=== PATIENT | male | born 1945 ===

== ENCOUNTER 2017-02-26 18:42 | Emergency (ER) | payer MEDICARE ==
[2017-02-26 18:52] VITALS: BP 134/68; PULSE 64; RESP 18; TEMP 98.4; O2SAT 98
--- NOTE | 2017-02-26 19:39 | ED PDOC ---
Lower Extremity Pain/Injury Time Seen by Provider: 02/26/17 19:01 Chief Complaint (Nursing): Lower Extremity Problem/Injury Chief Complaint (Provider): Left Toe Pain History Per: Patient History/Exam Limitations: no limitations Onset/Duration Of Symptoms: Days Current Symptoms Are (Timing): Still Present Additional Complaint(s): Kalyn Rocha, a 71 year old male, with a past medical history of diabetes and coronary artery disease presents to the ED with intermittent left toe pain. Patient states he has difficulty bending his left great toe. He reports that this diabetes is currently under control and denies any other joint pain. He reports that he has yet to be seen by podiatry. Denies fevers, chills. PMD: Reva Fowler Past Medical History Reviewed: Historical Data, Nursing Documentation, Vital Signs Vital Signs: Last Vital Signs Temp 98.4 F 02/26/17 18:47 Pulse 64 02/26/17 18:47 Resp 18 02/26/17 18:47 BP 134/68 02/26/17 18:47 Pulse Ox 98 02/26/17 18:47 - Medical History PMH: CAD, Diabetes, HTN Denies: HIV - Surgical History Surgical History: Coronary Stent - Family History Family History: States: Diabetes - Home Medications Home Medications: Ambulatory Orders Medication Instructions Recorded Bisoprolol 2.5 mg PO DAILY 07/31/14 Enalapril Maleate 10 mg PO DAILY 07/31/14 Famotidine [Pepcid] 20 mg PO BID 07/31/14 Glipizide 5 mg PO QPM 07/31/14 Metformin Hydrochloride [Metformin] 1,000 mg PO BID 07/31/14 Sitagliptin Phosphate [Januvia] 100 mg PO DAILY 07/31/14 Aspirin 325 mg PO DAILY #30 tab 08/01/14 Atorvastatin [Lipitor] 80 mg PO HS #30 tab 08/01/14 Clopidogrel [Plavix] 75 mg PO HS #0 tab 08/01/14 Ibuprofen [Motrin Ib] 400 mg PO Q6 #30 tablet 02/26/17 Methylprednisolone [Medrol Dose 4 mg PO DAILY #21 mg 02/26/17 Pack (21 tabs)] - Allergies Allergies/Adverse Reactions: Allergies Allergy/AdvReac Type Severity Reaction Status Date / Time No Known Allergies Allergy Verified 07/31/14 17:35 Review of Systems ROS Statement: Except As Marked, All Systems Reviewed And Found Negative Constitutional: Negative for: Fever, Chills Musculoskeletal: Negative for: Foot Pain (Left toe pain) Physical Exam - Reviewed Nursing Documentation Reviewed: Yes Vital Signs Reviewed: Yes - Physical Exam Appears: Positive for: Non-toxic, No Acute Distress Head Exam: Positive for: ATRAUMATIC, NORMAL INSPECTION, NORMOCEPHALIC Skin: Positive for: Normal Color, Warm, Dry. Negative for: Rash Eye Exam: Positive for: Normal appearance, EOMI, PERRL. Negative for: Nystagmus Neck: Positive for: Normal, Painless ROM, Supple Cardiovascular/Chest: Positive for: Regular Rate, Rhythm, Chest Non Tender. Negative for: Tachycardia Respiratory: Positive for: Normal Breath Sounds. Negative for: Rales, Rhonchi, Wheezing, Respiratory Distress Extremity: Positive for: Swelling (mild swelling of the metatarsal joint ), Other (distal pulses intact; no erythema to left toe). Negative for: Normal ROM (limited ROM secondary to pain of joint), Tenderness, Calf Tenderness, Deformity Neurologic/Psych: Positive for: Alert, Oriented - ECG O2 Sat by Pulse Oximetry: 98 (RA) Pulse Ox Interpretation: Normal Medical Decision Making Medical Decision Makin Initial Impression: Gout vs Arthritis Initial Plan: * Toradol 30mg IM * RAD Left Foot * Reevaluation 830PM Pt. is sleeping, feeling better, told to f/u w/ podiatry. Will d/c home. Return precautions given. Scribe Attestation Documented by Ade Hooker acting as a scribe for Roland Marsh MD. Provider Attestation: All medical record entries made by the Scribe were at my direction and personally dictated by me. I have reviewed the chart and agree that the record accurately reflects my personal performance of the history, physical exam, medical decision making, and the department course for this patient. I have also personally directed, reviewed, and agree with the discharge instructions and disposition. Disposition - Clinical Impression Clinical Impression: Gout, Foot pain - Disposition Referrals: Podiatry Clinic [Outside] Disposition: Routine/Home Disposition Time: 20:30 Condition: IMPROVED Prescriptions: Ibuprofen [Motrin Ib] 400 mg PO Q6 #30 tablet Methylprednisolone [Medrol Dose Pack (21 tabs)] 4 mg PO DAILY #21 mg Instructions: Gout (ED), Swollen Joint (ED) Forms: [employer] (Mosotho)
--- NOTE | 2017-03-02 10:52 | RAD ---
PROCEDURE: Left Foot Radiographs. HISTORY: Left foot pain and swelling. No antecedent history of trauma provided. COMPARISON: None. FINDINGS: BONES: Normal. No fracture. JOINTS: Normal. SOFT TISSUES: Normal. OTHER FINDINGS: None. IMPRESSION: No significant or acute findings to account for/ related to the clinical presentation. Please note: No preliminary report/ innterpretation of this examination provided by emergency department personnel.
== END 2017-02-26 20:50 | disposition home or self-care (01) ==
LOC: H.ER 18:42
DX: M10.9 Gout, unspecified (principal); M79.672 Pain in left foot; E11.9 Type 2 diabetes mellitus without complications; I25.10 Atherosclerotic heart disease of native coronary artery without angina pectoris; I10 Essential (primary) hypertension
CPT/HCPCS: 73660; 96372; 99283; J1885

== ENCOUNTER 2018-05-21 10:17 | Emergency (ER) | payer MEDICARE ==
[2018-05-21 10:38] VITALS: TEMP 98.5
[2018-05-21 10:39] VITALS: BMI 27.4
[2018-05-21] MEDS ORDERED: Tdap Vaccine 0.5 ml Vial (10-64 yrs) IM ONE (10:51)
[2018-05-21 11:18] LABS: BASO % 0.2 % (0.0-2.0); EOS # 0.1 K/uL (0.0-0.7); EOS % 0.8 % (0.0-4.0); HEMOGLOBIN 12.3 g/dL (12.0-18.0); LYMPH # 1.1 K/uL (1.0-4.3); LYMPH % 13.8 % (20.0-40.0); MEAN CELL VOLUME 89.8 fl (80.0-94.0); MEAN CORPUSCULAR HEMOGLOBIN 29.5 pg (27.0-31.0); MEAN CORPUSCULAR HGB CONC 32.9 g/dL (33.0-37.0); MONO # 0.5 K/uL (0.0-0.8); MONO % 6.4 % (0.0-10.0); NEUT # 6.4 K/uL (1.8-7.0); NEUT % 78.8 % (50.0-75.0); NRBC % 0.1 % (0.0-0.0); RBC 4.18 Mil/uL (4.40-5.90); RED CELL DISTRIBUTION WIDTH 13.1 % (11.5-14.5); WHITE BLOOD COUNT 8.1 K/uL (4.8-10.8)
[2018-05-21 11:29] LABS: ALB/GLOB RATIO 1.2 (1.0-2.1); ALBUMIN 4.1 g/dL (3.5-5.0); ALT/SGPT 26 U/L (21-72); AST/SGOT 24 U/L (17-59); BLOOD UREA NITROGEN 18 mg/dl (9-20); CALCIUM 9.8 mg/dL (8.4-10.2); GFR NON-AFRICAN AMERICAN > 60
[2018-05-21] MEDS ORDERED: Lidocaine 1% Inj (20ml) IJ ONE (11:32)
[2018-05-21 11:34] LABS: PROTHROMBIN TIME 11.4 Seconds (9.8-13.1)
[2018-05-21 11:37] LABS: PARTIAL THROMBOPLASTIN TIME 26.8 Seconds (25.6-37.1)
--- NOTE | 2018-05-21 11:54 | CT ---
D dated 07/31/2014. Ate of service: 05/21/2018 PROCEDURE: CT HEAD WITHOUT CONTRAST. HISTORY: r/o ICH COMPARISON: comparison made with prior study 07/31/2014 TECHNIQUE: Axial computed tomography images were obtained through the head/brain without intravenous contrast. Radiation dose: Total exam DLP = 832.83 mGy-cm. This CT exam was performed using one or more of the following dose reduction techniques: Automated exposure control, adjustment of the mA and/or kV according to patient size, and/or use of iterative reconstruction technique. FINDINGS: HEMORRHAGE: No intracranial hemorrhage. BRAIN: Chronic periventricular white matter ischemic changes are suspected. Moderate generalized volume loss. VENTRICLES: Unremarkable. No hydrocephalus. CALVARIUM: There are no acute calvarial fractures. Suspect minimal scalp swelling left frontal and left superior parietal regions. Additionally, there also appears to be superior right parasagittal frontal scalp scar PARANASAL SINUSES: The remaining visualized paranasal sinuses appear hypoplastic. Minor mucosal thickening noted within a few ethmoid air cells and sphenoid sinus.. MASTOID AIR CELLS: Unremarkable as visualized. No inflammatory changes. OTHER FINDINGS: None. IMPRESSION: No acute intracranial hemorrhage. Moderate generalized volume loss. Suspect minimal left frontal and left posterior superior parietal scalp swelling the
--- NOTE | 2018-05-21 12:13 | ED PDOC ---
HPI: Trauma/Fall - HPI Time Seen by Provider: 05/21/18 10:46 Chief Complaint (Nursing): Trauma Chief Complaint (Provider): s/p Fall History Per: Patient History/Exam Limitations: other (poor recollection of events) Injury Occurred (Timing): Today @ (approximately 0730) Additional Complaint(s): 72 year old male with pmhx of CAD, HTN, and diabetes, currently on aspirin and plavix presents to the ED for evaluation s/p a fall. Patient reports around 0730 this morning, he fell while getting up from his toilet after tripping on a rug, striking his head on a nearby garbage can. He admits a poor recollection of events, noting he lost consciousness for approximately 1-2 minutes. Upon waking up, he reports feeling dazed but initially did not want to come to the hospital. He states he had a mild headache which he took aspirin for, as well as his plavix. Finally, a family member convinced him to come in for evaluation. In addition to his mild headache, patient is also reporting intermittent upper abdominal pain associated with dizziness and nausea for the past couple weeks. Tetanus not up to date PMD: none provided Past Medical History Reviewed: Historical Data, Nursing Documentation, Vital Signs Vital Signs: Last Vital Signs Temp 98.5 F 05/21/18 10:38 Pulse 74 05/21/18 10:38 Resp 16 05/21/18 10:38 BP 170/82 H 05/21/18 10:38 Pulse Ox 97 05/21/18 10:38 - Medical History PMH: CAD, Diabetes, HTN Denies: HIV - Surgical History Surgical History: Coronary Stent - Family History Family History: States: Diabetes - Social History Current smoker - smoking cessation education provided: Yes (some days) Alcohol: None Drugs: Denies - Home Medications Home Medications: Ambulatory Orders Medication Instructions Recorded Bisoprolol 2.5 mg PO DAILY 07/31/14 Enalapril Maleate 10 mg PO DAILY 07/31/14 Famotidine [Pepcid] 20 mg PO BID 07/31/14 Glipizide 5 mg PO QPM 07/31/14 Metformin Hydrochloride [Metformin] 1,000 mg PO BID 07/31/14 Sitagliptin Phosphate [Januvia] 100 mg PO DAILY 07/31/14 Aspirin 325 mg PO DAILY #30 tab 08/01/14 Atorvastatin [Lipitor] 80 mg PO HS #30 tab 08/01/14 Clopidogrel [Plavix] 75 mg PO HS #0 tab 08/01/14 Ibuprofen [Motrin Ib] 400 mg PO Q6 #30 tablet 02/26/17 Methylprednisolone [Medrol Dose 4 mg PO DAILY #21 mg 02/26/17 Pack (21 tabs)] - Allergies Allergies/Adverse Reactions: Allergies Allergy/AdvReac Type Severity Reaction Status Date / Time No Known Allergies Allergy Verified 07/31/14 17:35 Review of Systems ROS Statement: Except As Marked, All Systems Reviewed And Found Negative Gastrointestinal: Positive for: Nausea, Abdominal Pain (upper) Skin: Positive for: Other (laceration to forehead) Neurological: Positive for: Headache (mild), Dizziness Physical Exam - Reviewed Nursing Documentation Reviewed: Yes Vital Signs Reviewed: Yes - Physical Exam Appears: Positive for: No Acute Distress Head Exam: Positive for: NORMOCEPHALIC. Negative for: ATRAUMATIC (3.5cm laceration to left frontal forehead) Skin: Positive for: Normal Color, Warm Eye Exam: Positive for: Normal appearance, EOMI, PERRL ENT: Positive for: TM Is/Are (unremarkable bilaterally). Negative for: Other (hemotympanum bilaterally) Neck: Positive for: Normal, Painless ROM, Supple Cardiovascular/Chest: Positive for: Regular Rate, Rhythm, Chest Non Tender Respiratory: Positive for: Normal Breath Sounds. Negative for: Respiratory Distress Gastrointestinal/Abdominal: Positive for: Normal Exam, Soft, Other (pelvis stable). Negative for: Tenderness Extremity: Positive for: Normal ROM (to all extremities) Neurologic/Psych: Positive for: Alert, Oriented (x3) - Laboratory Results Result Diagrams: 05/21/18 11:00 05/21/18 11:00 - ECG ECG: Positive for: Interpreted By Me, Viewed By Me ECG Rhythm: Positive for: Sinus Rhythm (normal at 83bpm), 1st Degree Heart Block O2 Sat by Pulse Oximetry: 97 (RA) Pulse Ox Interpretation: Normal Medical Decision Making Medical Decision Making: Time: 1052 Initial Impression: fall with head trauma while taking aspirin / plavix Initial Plan: --CT C-spine without contrast --CT head without contrast --EKG --CMP --Trop I --CBC with differential --PT / PTT --Tetanus booster --Tylenol 650mg PO 1150 CT Head FINDINGS: HEMORRHAGE: No intracranial hemorrhage. BRAIN: Chronic periventricular white matter ischemic changes are suspected. Moderate generalized volume loss. VENTRICLES: Unremarkable. No hydrocephalus. CALVARIUM: There are no acute calvarial fractures. Suspect minimal scalp swelling left frontal and left superior parietal regions. Additionally, there also appears to be superior right parasagittal frontal scalp scar PARANASAL SINUSES: The remaining visualized paranasal sinuses appear hypoplastic. Minor mucosal thickening noted within a few ethmoid air cells and sphenoid sinus.. MASTOID AIR CELLS: Unremarkable as visualized. No inflammatory changes. OTHER FINDINGS: None. IMPRESSION: No acute intracranial hemorrhage. Moderate generalized volume loss. Suspect minimal left frontal and left posterior superior parietal scalp swelling the 1200 Labs reviewed with no abnormalities. EKG shows NSR at 83bpm and 1st degree av block. Awaiting CT C-spine results. 1220 CT C-spine FINDINGS: Note that the examination is somewhat limited due to crossing streak and beam hardening artifact at several levels in part due to dental amalgam in the upper cervical region and due to a dense clavicles and shoulder girdles in the lower cervical and upper thoracic region on VERTEBRAE: No acute displaced- compression fractures nor retropulsed fragments. Mild chronic anterior stature loss of the C5 segment. DISCS/SPINAL CANAL/NEURAL FORAMINA: Multilevel degenerative spondylosis. At the C5-C6 level, there is disc space narrowing, endplate eburnation and subchondral cystic changes. Small broad-based disc ridge complex contiguous with hypertrophic uncovertebral joints. The facets also slightly hypertrophic. Changes result in mild central canal narrowing and presumed mild cord compre ssion. Exit foramina are stenotic bilaterally At the C6-C7 level, there is also disc space narrowing, cortical endplate eburnation and irregularity. Small broad-based disc ridge complex contiguous w ith slightly hypertrophic uncovertebral joints. The central canal appears adequate. Exit foramina are marginal to adequate. At the C4-C5 level, there is adequate disc height. No disc herniation or significant disc bulge. Slight degenerative squaring of the uncovertebral joints. The left facet is quite hypertrophic. Right facet is slightly overgrown. Exit foramina narrowed bilaterally left greater than right. At the C3-C4 level, minor posterior disc space narrowing. Small central and maximiliano ateral disc bulge ridge complex contiguous with slightly hypertrophic uncovertebral joints. The left facet is quite hypertrophic and right facets slightly overgrown.. Exit foramina narrowed bilaterally left greater than right. Mild posterior disc space narrowing C2-C3 level. The facets also mildly hypertrophic right greater than left. Central canal and exit foramina adequate. PARASPINAL SOFT TISSUES: Unremarkable. OTHER FINDINGS: None. IMPRESSION: No acute fractures. 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 Ruy Awan 3P re-eval feels well and wants to go home, denies headache nausea or change vision. explained risks of delayed bleeding on ASA/plavix but patient aware of risks and prefers to be discharged with followup PMD. Indications for return ER discussed at length and repeated. Neuro intact without complaints on discharge. bacitracin sample given for wound care and instructions provided. sutures out in 5-7 days via PMD. --- Scribe Attestation: Documented by Liza Dykes, acting as a scribe for Chris Cortez III, DO. Provider Scribe Attestation: All medical record entries made by the Scribe were at my direction and personally dictated by me. I have reviewed the chart and agree that the record accurately reflects my personal performance of the history, physical exam, medical decision making, and the department course for this patient. I have also personally directed, reviewed, and agree with the discharge instructions and disposition. Procedures - Time-Out Type of Procedure: suture repair Correct Patient (with visual ID + MR# on ID Band): Yes Correct Procedure: Yes Physician Name: Chris Cortez III, DO - Laceration/Wound Repair Left Frontal Forehead Wound Length (cm): 3.5 Wound's Depth, Shape: superficial Irrigated w/ Saline (ccs): 50 Betadine Prep?: Yes Anesthesia: 1% Lidocaine Volume Anesthetic (ccs): 6 Wound Repaired With: Sutures Suture Size/Type: 5:0 (ethilon) Number of Sutures: 7 (interrupted) Wound Complexity: Simple Sterile Dressing Applied?: Yes Progress: Patient tolerated procedure well with no complications. Disposition - Clinical Impression Clinical Impression: Head injury due to trauma, Facial laceration - Patient ED Disposition Is Patient to be Admitted: No Counseled Patient/Family Regarding: Studies Performed, Diagnosis - Disposition Referrals: [facility] [Outside] Disposition: Routine/Home Disposition Time: 15:06 Condition: STABLE Additional Instructions: You were offered further observation in hospital for head injury while taking aspirin and plavix but you preferred to go home. RETURN TO HOSPITAL IMMEDIATELY FOR ANY RETURN OF HEADACHE, NAUSEA, CHANGE IN VISION, OR WEAKNESS. HAVE SUTURES REMOVED IN 5 DAYS. USE BACITRACIN 2X DAILY. Instructions: Closed Head Injury, Laceration Repair With Stitches (DC) Forms: [employer] (Lithuanian)
--- NOTE | 2018-05-21 12:23 | CT ---
Date of service: 05/21/2018 PROCEDURE: CT Cervical Spine without contrast HISTORY: Trauma r/o fx COMPARISON: No prior study available for comparison TECHNIQUE: Axial computed tomography images were obtained of the cervical spine without the use of intravenous contrast. Coronal and sagittal reformatted images were created and reviewed. Radiation dose: Total exam DLP = 414.23 mGy-cm. This CT exam was performed using one or more of the following dose reduction techniques: Automated exposure control, adjustment of the mA and/or kV according to patient size, and/or use of iterative reconstruction technique. FINDINGS: Note that the examination is somewhat limited due to crossing streak and beam hardening artifact at several levels in part due to dental amalgam in the upper cervical region and due to a dense clavicles and shoulder girdles in the lower cervical and upper thoracic region on VERTEBRAE: No acute displaced- compression fractures nor retropulsed fragments. Mild chronic anterior stature loss of the C5 segment. DISCS/SPINAL CANAL/NEURAL FORAMINA: Multilevel degenerative spondylosis. At the C5-C6 level, there is disc space narrowing, endplate eburnation and subchondral cystic changes. Small broad-based disc ridge complex contiguous with hypertrophic uncovertebral joints. The facets also slightly hypertrophic. Changes result in mild central canal narrowing and presumed mild cord compression. Exit foramina are stenotic bilaterally At the C6-C7 level, there is also disc space narrowing, cortical endplate eburnation and irregularity. Small broad-based disc ridge complex contiguous with slightly hypertrophic uncovertebral joints. The central canal appears adequate. Exit foramina are marginal to adequate. At the C4-C5 level, there is adequate disc height. No disc herniation or significant disc bulge. Slight degenerative squaring of the uncovertebral joints. The left facet is quite hypertrophic. Right facet is slightly overgrown. Exit foramina narrowed bilaterally left greater than right. At the C3-C4 level, minor posterior disc space narrowing. Small central and bilateral disc bulge ridge complex contiguous with slightly hypertrophic uncovertebral joints. The left facet is quite hypertrophic and right facets slightly overgrown.. Exit foramina narrowed bilaterally left greater than right. Mild posterior disc space narrowing C2-C3 level. The facets also mildly hypertrophic right greater than left. Central canal and exit foramina adequate. PARASPINAL SOFT TISSUES: Unremarkable. OTHER FINDINGS: None. IMPRESSION: No acute fractures. 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
[2018-05-21 14:54] VITALS: BP 168/84; PULSE 85; RESP 18
[2018-05-21 15:04] VITALS: O2SAT 97
--- NOTE | 2018-05-22 20:58 | CARD ---
APPROVED REPORT Date of service: 05/21/2018 EKG Measurement Heart [id number] <Conclusion> Sinus rhythm with 1st degree AV block Otherwise normal ECG
== END 2018-05-21 15:00 | disposition home or self-care (01) ==
LOC: H.ER 10:17
DX: S01.81XA Laceration without foreign body of other part of head, initial encounter (principal); W01.0XXA Fall on same level from slipping, tripping and stumbling without subsequent striking against object, initial encounter; Y92.89 Other specified places as the place of occurrence of the external cause; I10 Essential (primary) hypertension; I25.10 Atherosclerotic heart disease of native coronary artery without angina pectoris; Z79.84 Long term (current) use of oral hypoglycemic drugs; Z95.5 Presence of coronary angioplasty implant and graft